=== PATIENT | female | born 1960 | race Caucasian/White ===

== ENCOUNTER → 2017-11-23 | Outpatient (CLI) | payer BC ==
[2017-11-24 03:19] LABS: THYROXINE 7.9 ug/dL (4.5-12.0)
== END | disposition home or self-care (01) ==
LOC: LAB 11:32
PROVIDERS: ATTEND General Practice
DX: E03.9 Hypothyroidism, unspecified (principal); K21.9 Gastro-esophageal reflux disease without esophagitis
CPT/HCPCS: 36415; 84436; 84443; 84480

== ENCOUNTER → 2018-01-15 | Outpatient (CLI) | payer BC ==
[2018-01-16 00:07] LABS: THYROXINE 10.1 ug/dL (4.5-12.0)
== END | disposition home or self-care (01) ==
LOC: LAB 08:16
PROVIDERS: ATTEND General Practice
DX: E03.9 Hypothyroidism, unspecified (principal); K21.9 Gastro-esophageal reflux disease without esophagitis
CPT/HCPCS: 36415; 84436; 84443; 84480